=== PATIENT | female | born 1955 | race Caucasian/White ===

== ENCOUNTER 2021-08-17 12:23 | Observation (INO) ==
--- NOTE | 2021-08-17 13:00 | XRay Report ---
XR chest 1V portable CLINICAL HISTORY: Atypical chest pain TECHNIQUE: Single frontal radiograph of the chest was obtained. Comparison: None available at the time of this dictation. FINDINGS: No lines and tubes are seen. The cardiomediastinal silhouette is normal. Focal atelectasis is seen at the left lung base. No evidence of pleural effusion or pneumothorax. IMPRESSION: No acute chest disease. ACT 112: Negative or not required by law. Electronically signed by: Murali Sandoval M.D. 08/17/2021 12:59 PM
[2021-08-17 13:05] LABS: Basophils # (auto) 0.02 K/uL (0-0.2); Basophils % (auto) 0.3 %; Eosinophils # (auto) 0.11 K/uL (0-0.5); Eosinophils % (auto) 1.6 %; Hemoglobin 14.3 g/dL (12.0-16.0); Immature Granulocytes # (auto) 0.01 K/uL (0.00-0.02); Immature Granulocytes % (auto) 0.1 %; Lymphocytes # (auto) 2.11 K/uL (1.2-3.4); Lymphocytes % (auto) 30.4 %; Mean Corpuscular Hemoglobin 28.7 pg (25-34); Mean Corpuscular Hgb Conc 32.5 g/dL (32-36); Mean Corpuscular Volume 88.4 fL (80-100); Mean Platelet Volume 10.1 fL (7.4-10.4); Monocytes # (auto) 0.42 K/uL (0.11-0.59); Monocytes % (auto) 6.1 %; Neutrophils # (auto) 4.26 K/uL (1.4-6.5); Neutrophils % (auto) 61.5 %; Platelet Count 280 K/uL (130-400); RDW Coefficient of Variation 13.7 % (11.5-14.5); RDW Standard Deviation 44.4 fL (36.4-46.3); Red Blood Count 4.98 M/uL (4.2-5.4); White Blood Count 6.93 K/uL (4.8-10.8)
[2021-08-17 13:29] LABS: Alanine Aminotransferase 23 U/L (12-78); Albumin Level 3.9 gm/dl (3.4-5.0); BUN Creatinine Ratio 19.3 (10-20); Blood Urea Nitrogen 18 mg/dl (7-18); Calcium 9.3 mg/dl (8.5-10.1); Carbon Dioxide 25 mmol/L (21-32); Chloride 105 mmol/L (98-107); Creatinine Clr Calc Pharmacy 55.6 ml/min; Est GFR (African American) 76.3 ml/min; Est GFR (Non-African American) 65.8 ml/min; Glucose 89 mg/dl (70-99); Lipase 117 U/L (73-393); Potassium 3.6 mmol/L (3.5-5.1); Sodium 137 mmol/L (136-145)
[2021-08-17 13:35] LABS: Albumin Globulin Ratio 1.1 (0.9-2); Alkaline Phosphatase 42 U/L (45-117); Aspartate Aminotransferase 16 U/L (15-37); Bilirubin,Total 0.5 mg/dl (0.2-1); Globulin 3.7 gm/dl (2.5-4.0); Total Protein 7.6 gm/dl (6.4-8.2); Troponin I < 0.015 ng/ml (0-0.045)
[2021-08-17] MEDS ORDERED: diphenhydrAMINE Capsule 25 MG CAP PO PRN (15:25)
[2021-08-17] MEDS ORDERED: NITROGLYCERIN SL 0.4 MG/TAB TAB SL PRN (15:29)
--- NOTE | 2021-08-17 15:33 | History & Physical Report ---
Date of Service August 17, 2021 Assessment & Plan (1) Chest pain: Plan: will admit under obs Mianly atypical features will check cardiac markers check echo may consder stress test in AM. will order. (2) Lab test negative for COVID-19 virus: Plan: COVID 19 negative (3) Hypertension: Plan: will resume home meds (4) Dyslipidemia: Plan: continue home meds (5) GERD (gastroesophageal reflux disease): Plan: resume PPI History of Present Illness Chief Complaint: chest pain Primary Care Provider: Gurpreet Meza 66 yo female who reports coming in to the hospitalt after having chest pain that began at 11:15. Patient reports that while at work she suddenly developed midsternum sharp pain that radiated to her neck and right ear. She denies being stressed or anxious at the time. She reports she had a similar episode over 10 years ago in which they determined after a negative stress test that this was due to GERD. Patient reports she has not had an episode until today. She reports the pain was accompanied by nausea and pain improved with nitro. She has had the Covid vaccine x2 no history of blood clots or vomiting blood thinners no GI symptoms. No trauma or injury. Allergies Allergy/AdvReac Type Severity Reaction Status Date / Time ampicillin Allergy Hives Unverified 08/17/21 15:32 promethazine [From Phenergan] Allergy Hives Unverified 08/17/21 15:32 Home Medications Medication Instructions Recorded Confirmed Type Potassium 99mg 99 mg PO DAILY 08/17/21 History activated charcoal 260 mg capsule 0 mg PO PC PRN 08/17/21 08/17/21 History budesonide 3 mg 3 mg PO DAILY 08/17/21 08/17/21 History capsule,delayed,extended release calcium carbonate 600 mg (1,500 1 tab PO DAILY 08/17/21 08/17/21 History mg)-vitamin D3 200 unit tablet diphenhydramine HCl 25 mg capsule 25 mg PO DAILY PRN 08/17/21 08/17/21 History (Benadryl) loratadine 10 mg tablet 10 mg PO DAILY PRN 08/17/21 08/17/21 History melatonin 10 mg tablet 10 mg PO HS PRN 08/17/21 08/17/21 History nitrofurantoin macrocrystal 50 mg 50 mg PO DAILY PRN 08/17/21 08/17/21 History capsule (Macrodantin) pantoprazole 40 mg tablet,delayed 40 mg PO DAILY 08/17/21 08/17/21 History release quinapril 10 1 tab PO DAILY 08/17/21 08/17/21 History mg-hydrochlorothiazide 12.5 mg tablet rosuvastatin 5 mg tablet 5 mg PO DAILY 08/17/21 08/17/21 History vit C 250 mg-vit E 90 mg-zinc 40 1 tab PO DAILY 08/17/21 08/17/21 History mg-copper 1 [id number] capsule (PreserVision AREDS-2) vitamin B comp and C no.3 15 mg-10 1 cap PO DAILY 08/17/21 08/17/21 History mg-50 mg-5 mg-300 mg capsule (B Complex Plus Vitamin C) Past Med/Surg History Medical History GERD (gastroesophageal reflux disease) Social History Smoking Status: Former smoker Second Hand Exposure: No; Do You Dip or Chew Tobacco: No; Hx Alcohol Use: No Hx Substance Use: No Preferred Language: Nepalese Play Writer Required: No Beliefs That Will Affect Care: None Current Living Situation: Spouse Other Information That Helps Us Care for You: No Feels Safe at Home: Yes Safety Concerns: Feels Safe At This Time Assistive Devices: Glasses Review of Systems Constitutional: no sweats and no malaise Eyes: no diplopia Ear, Nose, Mouth, Throat: no ear trauma and no hyperacusis Respiratory: no change in sputum Cardiovascular: no chest pain with activity Gastrointestinal: no bloating Genitourinary: no urinary frequency Musculoskeletal: no radicular pain Integumentary: no rash Neurologic: no falls Psychiatric: no hopelessness Endocrine: no polydipsia Hematologic / Lymphatic: no coagulopathy Allergy / Immunological: no lip swelling Physical Exam Constitutional: WD/WN, vitals as above Eyes: PERRL, conjunctivae normal, anicteric sclerae ENMT: external ear and nose normal, oropharynx normal Neck: trachea midline, no thyromegaly Respiratory: normal respiratory effort, lungs clear to auscultation Cardiovascular: RRR, no murmur, no edema Gastrointestinal (Abdomen): normal bowel sounds, soft, nontender, no hepatosplenomegaly Musculoskeletal: no cyanosis or clubbing, extremities motor strength 5/5 Skin: no rashes, warm and dry Neurologic: PERRL, EOMI, accommodation nl, no face palsy, no dysarthria Psychiatric: A+Ox3, euthymic affect Lymphatic: no cervical or axillary lymphadenopathy Results & Data Results & Data ([facility]) Vital Signs (Past 12 Hours) Vital Signs Temp Pulse Pulse Resp BP BP Pulse Ox 08/17/21 15:02 97 08/17/21 14:02 71 19 133/87 96 08/17/21 13:30 68 15 132/86 98 08/17/21 13:00 74 17 173/97 H 99 08/17/21 12:48 97 08/17/21 12:34 36.9 C 72 18 148/93 H 98 08/17/21 12:30 72 12 148/93 H 98 08/17/21 12:25 75 15 159/105 H 97 PG Care Time/CCT Total # of Minutes Spent Total Time Spent with Patient: Total time spent is greater than 50% in coordination of care (as documented) at patient's floor/unit and/or counseling patient: Coding Level of Care Code INT OBSERVATION CARE 70M LVL 3 Diagnoses Chest pain R07.2 Chest pain type: precordial pain Lab test negative for COVID-19 virus Z20.822 Hypertension I10 Hypertension type: unspecified Dyslipidemia E78.5 GERD (gastroesophageal reflux disease) K21.9 (1) Chest pain Chest pain type: precordial pain Qualified Code(s): R07.2 - Precordial pain (2) Hypertension Hypertension type: unspecified Qualified Code(s): I10 - Essential (primary) hypertension
--- NOTE | 2021-08-17 16:27 | Emergency Department Note ---
History of Present Illness General Chief complaint: Chest Pain Time Seen by Provider: 08/17/21 12:52 Source: patient Mode of arrival: EMS Limitations: no limitations History of Present Illness This patient is a 66-year-old female who comes in after having episode of sharp chest pain that started at 1015. 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 it went up the right side of her neck and her jaw hurt as well no radiation of the back or the arm. She did have some nausea and slight diaphoresis but no shortness of breath the pain was 6 out of 10 initially. they did call the ambulance because her blood pressure was also high at 176/102. Prior to the ambulance coming her pain did come down to 3 out of 10 and they gave her 324 mg aspirin as well as 1 nitroglycerin and that made her pain go away. The pain was not pleuritic she had no lower extremity pain or swelling. She has had the Covid vaccine x2 no history of blood clots or vomiting blood thinners no GI symptoms. No trauma or injury. Home Medications Medication Instructions Recorded Confirmed Type Potassium 99mg 99 mg PO DAILY 08/17/21 History activated charcoal 260 mg capsule 0 mg PO PC PRN 08/17/21 08/17/21 History budesonide 3 mg 3 mg PO DAILY 08/17/21 08/17/21 History capsule,delayed,extended release calcium carbonate 600 mg (1,500 1 tab PO DAILY 08/17/21 08/17/21 History mg)-vitamin D3 200 unit tablet diphenhydramine HCl 25 mg capsule 25 mg PO DAILY PRN 08/17/21 08/17/21 History (Benadryl) loratadine 10 mg tablet 10 mg PO DAILY PRN 08/17/21 08/17/21 History melatonin 10 mg tablet 10 mg PO HS PRN 08/17/21 08/17/21 History nitrofurantoin macrocrystal 50 mg 50 mg PO DAILY PRN 08/17/21 08/17/21 History capsule (Macrodantin) pantoprazole 40 mg tablet,delayed 40 mg PO DAILY 08/17/21 08/17/21 History release quinapril 10 1 tab PO DAILY 08/17/21 08/17/21 History mg-hydrochlorothiazide 12.5 mg tablet rosuvastatin 5 mg tablet 5 mg PO DAILY 08/17/21 08/17/21 History vit C 250 mg-vit E 90 mg-zinc 40 1 tab PO DAILY 08/17/21 08/17/21 History mg-copper 1 [id number] capsule (PreserVision AREDS-2) vitamin B comp and C no.3 15 mg-10 1 cap PO DAILY 08/17/21 08/17/21 History mg-50 mg-5 mg-300 mg capsule (B Complex Plus Vitamin C) Allergies Allergy/AdvReac Type Severity Reaction Status Date / Time ampicillin Allergy Hives Unverified 08/17/21 15:32 promethazine [From Phenergan] Allergy Hives Unverified 08/17/21 15:32 Past Med/Surg History Medical History GERD (gastroesophageal reflux disease) Social History Feels Safe at Home: Yes Immunizations: Past medical historydenies diabetes she does have hypertension as well as hypercholesterolemia. She does have fibromyalgia and GI issues Family history grandfather of an [place] Social history she quit smoking 10 years ago and had about a 15-year smoking history or so. Does not use alcohol or drugs Review of Systems A total of 10 systems reviewed and were otherwise negative Physical Exam Vital Signs Vital Signs - 24 hr 08/17/21 12:25 08/17/21 12:30 08/17/21 12:34 Temperature 36.9 C Temperature Source Oral Pulse Rate 75 72 72 Pulse Rate [Apical] Pulse Rate from SpO2 Sensor 76 72 Pulse Rhythm [Apical] Pulse Strength [Apical] Respiratory Rate 15 12 18 Respiratory Effort / Characteristics Respiratory Depth Respiratory Pattern Blood Pressure 159/105 H 148/93 H 148/93 H Blood Pressure [Right Arm] Blood Pressure Mean 123 111 111 Blood Pressure Mean [Right Arm] Blood Pressure Position [Right Arm] Pulse Oximetry 97 98 98 Oxygen Delivery Method Room Air Sepsis Recent Fever Within 48 Hours No Sepsis New/Unexplained Change in Mental Status No Sepsis Action Taken by Nursing No Action Required 08/17/21 12:48 08/17/21 13:00 08/17/21 13:30 Temperature Temperature Source Pulse Rate 74 68 Pulse Rate [Apical] Pulse Rate from SpO2 Sensor 74 70 Pulse Rhythm [Apical] Pulse Strength [Apical] Respiratory Rate 17 15 Respiratory Effort / Characteristics Respiratory Depth Respiratory Pattern Blood Pressure 173/97 H 132/86 Blood Pressure [Right Arm] Blood Pressure Mean 122 101 Blood Pressure Mean [Right Arm] Blood Pressure Position [Right Arm] Pulse Oximetry 97 99 98 Oxygen Delivery Method Room Air Sepsis Recent Fever Within 48 Hours Sepsis New/Unexplained Change in Mental Status Sepsis Action Taken by Nursing 08/17/21 14:02 08/17/21 15:02 Temperature Temperature Source Pulse Rate Pulse Rate [Apical] 71 Pulse Rate from SpO2 Sensor Pulse Rhythm [Apical] Regular Pulse Strength [Apical] Normal Respiratory Rate 19 Respiratory Effort / Characteristics Non-Labored Spontaneous Respiratory Depth Normal Respiratory Pattern Regular Blood Pressure Blood Pressure [Right Arm] 133/87 Blood Pressure Mean Blood Pressure Mean [Right Arm] 102 Blood Pressure Position [Right Arm] Lying Pulse Oximetry 96 97 Oxygen Delivery Method Room Air Room Air Sepsis Recent Fever Within 48 Hours Sepsis New/Unexplained Change in Mental Status Sepsis Action Taken by Nursing General: Well developed well nourished middle-age female who appears in no acute distress, breathing comfortably on room air. Normal speech HEENT: Normal cephalic atraumatic. Pupils are equal round and reactive to light. Extraocular movements are intact. Oropharynx is pink with moist mucous membranes. No swelling of the mouth lips or tongue. Neck: Supple with a midline trachea. No meningeal signs or stiffness, no JVD or bruits. No Stridor. Chest: Clear to auscultation bilaterally. No wheezes or rhonchi. No increased work of breathing. Not reproducibly tender Heart: Regular rate and rhythm without murmurs or gallops. Abdomen: Soft nontender, nondistended without rebound guarding or rigidity. Extremities: No cyanosis clubbing or edema. No calf tenderness or assymetry Spine/Back. Non tender to palpation. No CVA tenderness Skin: Good turgor without rashes. Neurologic exam: Cranial nerves two through 12 are intact. Motor and sensation are intact and symmetrical throughout. Medical Decision Making Differential Diagnosis Acute coronary syndrome, arrhythmia, pulmonary disease, electrolyte or metabolic abnormality, GERD Medical Records Attestation: I reviewed the patient's medical records. Home Medications Current Medication List: was personally reviewed by me Laboratory Data Attestation: I reviewed the patient's lab results. Result diagrams: 08/17/21 12:30 08/17/21 12:30 Lab Results 08/17/21 08/17/21 08/17/21 Range/Units 12:30 12:30 14:10 WBC 6.93 (4.8-10.8) K/uL RBC 4.98 (4.2-5.4) M/uL Hgb 14.3 (12.0-16.0) g/dL Hct 44.0 (37-47) % MCV 88.4 (80-100) fL MCH 28.7 (25-34) pg MCHC 32.5 (32-36) g/dL RDW Std Deviation 44.4 (36.4-46.3) fL RDW Coeff of Yenni 13.7 (11.5-14.5) % Plt Count 280 (130-400) K/uL MPV 10.1 (7.4-10.4) fL Immature Gran % (Auto) 0.1 % Neut % (Auto) 61.5 % Lymph % (Auto) 30.4 % Heard % (Auto) 6.1 % Eos % (Auto) 1.6 % Baso % (Auto) 0.3 % Neut # (Auto) 4.26 (1.4-6.5) K/uL Lymph # (Auto) 2.11 (1.2-3.4) K/uL Heard # (Auto) 0.42 (0.11-0.59) K/uL Eos # (Auto) 0.11 (0-0.5) K/uL Baso # (Auto) 0.02 (0-0.2) K/uL Immature Gran # (Auto) 0.01 (0.00-0.02) K/uL Sodium 137 (136-145) mmol/L Potassium 3.6 (3.5-5.1) mmol/L Chloride 105 (98-107) mmol/L Carbon Dioxide 25 (21-32) mmol/L Anion Gap 7.0 (3-11) BUN 18 (7-18) mg/dl Creatinine 0.92 (0.6-1.2) mg/dl Est Cr Clr Drug Dosing 55.6 ml/min Est GFR ( Amer) 76.3 ml/min Est GFR (Non-Af Amer) 65.8 ml/min BUN/Creatinine Ratio 19.3 (10-20) Glucose 89 (70-99) mg/dl Calcium 9.3 (8.5-10.1) mg/dl Total Bilirubin 0.5 (0.2-1) mg/dl AST 16 (15-37) U/L ALT 23 (12-78) U/L Alkaline Phosphatase 42 L (45-117) U/L Troponin I < 0.015 (0-0.045) ng/ml Total Protein 7.6 (6.4-8.2) gm/dl Albumin 3.9 (3.4-5.0) gm/dl Globulin 3.7 (2.5-4.0) gm/dl Albumin/Globulin Ratio 1.1 (0.9-2) Lipase 117 (73-393) U/L Specimen Hemolysis COVID-19 Eval Order Covid19 at [facility] SARS-CoV-2 (PCR) (Negative) 08/17/21 Range/Units 14:10 WBC (4.8-10.8) K/uL RBC (4.2-5.4) M/uL Hgb (12.0-16.0) g/dL Hct (37-47) % MCV (80-100) fL MCH (25-34) pg MCHC (32-36) g/dL RDW Std Deviation (36.4-46.3) fL RDW Coeff of Yenni (11.5-14.5) % Plt Count (130-400) K/uL MPV (7.4-10.4) fL Immature Gran % (Auto) % Neut % (Auto) % Lymph % (Auto) % Heard % (Auto) % Eos % (Auto) % Baso % (Auto) % Neut # (Auto) (1.4-6.5) K/uL Lymph # (Auto) (1.2-3.4) K/uL Heard # (Auto) (0.11-0.59) K/uL Eos # (Auto) (0-0.5) K/uL Baso # (Auto) (0-0.2) K/uL Immature Gran # (Auto) (0.00-0.02) K/uL Sodium (136-145) mmol/L Potassium (3.5-5.1) mmol/L Chloride (98-107) mmol/L Carbon Dioxide (21-32) mmol/L Anion Gap (3-11) BUN (7-18) mg/dl Creatinine (0.6-1.2) mg/dl Est Cr Clr Drug Dosing ml/min Est GFR ( Amer) ml/min Est GFR (Non-Af Amer) ml/min BUN/Creatinine Ratio (10-20) Glucose (70-99) mg/dl Calcium (8.5-10.1) mg/dl Total Bilirubin (0.2-1) mg/dl AST (15-37) U/L ALT (12-78) U/L Alkaline Phosphatase (45-117) U/L Troponin I (0-0.045) ng/ml Total Protein (6.4-8.2) gm/dl Albumin (3.4-5.0) gm/dl Globulin (2.5-4.0) gm/dl Albumin/Globulin Ratio (0.9-2) Lipase (73-393) U/L Specimen Hemolysis COVID-19 Eval Order SARS-CoV-2 (PCR) NEGATIVE (Negative) Imaging Data Attestation: I personally reviewed and interpreted this imaging study as follows: My Impression: Chest x-rayno acute infiltrate, failure, pneumothorax seen. Radiologist's Impression: Chest X-Ray 08/17/21 12:47 XR chest 1V portable CLINICAL HISTORY: Atypical chest pain TECHNIQUE: Single frontal radiograph of the chest was obtained. Comparison: None available at the time of this dictation. FINDINGS: No lines and tubes are seen. The cardiomediastinal silhouette is normal. Focal atelectasis is seen at the left lung base. No evidence of pleural effusion or pneumothorax. IMPRESSION: No acute chest disease. ACT 112: Negative or not required by law. Electronically signed by: Murali Sandoval M.D. 08/17/2021 12:59 PM ECG Data Attestation: I personally reviewed and interpreted this ECG as follows: Indication: + chest pain Rate (beats per minute): 68 Rhythm: + sinus with SA and + sinus rhythm ECG Intervals/blocks: + Normal QRS, + Normal QT and + Normal [place] ECG [place]: + Normal ECG ST segments: + Normal ST segments ECG Findings: + Other (Nonspecific T wave abnormalities particularly laterally ); no PACs or no PVCs Comparison ECG Date: no prior available Additional Comments: EKG #2: Normal sinus rhythm rate of 74. Nonspecific T wave abnormalities/ST abnormalities, no significant change compared to EKG #1 MDM Narrative This patient comes in as described above she had an episode of chest pain today. It is resolved now. She does have several risk factors with hypertension, hypercholesteremia and family history. EKG has some nonspecific findings. Her troponin is not elevated. she did receive aspirin prior to arrival she tells me she did have an episode like this 10 years ago and everything checked out with a stress test at the time but she has not had any since then. Chest x-ray does not show congestive heart failure, pneumonia, or pneumothorax. she has nothing to suggest acute electrolyte or metabolic abnormalities. Given her risk factors and her symptoms,I do think she needs to be admitted/observed and have consulted the [facility] hospitalist to see her in the ER for these measures. Continuous cardiac monitoring: Orders placed in EMR for continuous cardiac monitoring. Upon my interpretation the patient was noted to be in normal sinus rhythm rate of 70. Impression & Plan Chest pain, Dyslipidemia, Hypertension, Nonspecific ST-T wave electrocardiographic changes, Lab test negative for COVID-19 virus Discharge Plan Visit Data Chief Complaint: Chest Pain ED Provider: Bassem Saenz Discharge Problem: Chest pain, Dyslipidemia, Hypertension, Nonspecific ST-T wave electrocard iographic changes, Lab test negative for COVID-19 virus Forms Stand Alone Forms: My [facility] Prescriptions Prescriptions: No Action activated charcoal [Charcoal] 260 mg Capsule 0 mg PO PC PRN (Reason: Pain) RF: 0 nitrofurantoin macrocrystal [Macrodantin] 50 mg Capsule 50 mg PO DAILY PRN (Reason: Pain) RF: 0 quinapril-hydrochlorothiazide 10-12.5 mg tablet 1 tab PO DAILY RF: 0 calcium carbonate-vitamin D3 [Calcium + D] 600 mg(1,500mg) -200 unit Tablet 1 tab PO DAILY RF: 0 pantoprazole 40 mg Tablet,Delayed Release (Dr/Ec) 40 mg PO DAILY RF: 0 diphenhydramine HCl [Benadryl] 25 mg Capsule 25 mg PO DAILY PRN (Reason: Allergy Symptoms) RF: 0 budesonide 3 mg capsule,delayed,extend.release 3 mg PO DAILY RF: 0 loratadine 10 mg Tablet 10 mg PO DAILY PRN (Reason: Pain) RF: 0 rosuvastatin 5 mg tablet 5 mg PO DAILY RF: 0 B Complex Plus Vitamin C 22-78-74-5-300 mg Capsule 1 cap PO DAILY RF: 0 melatonin 10 mg Tablet 10 mg PO HS PRN (Reason: Sleep) RF: 0 PreserVision AREDS-2 250-90-40-1 mg Capsule 1 tab PO DAILY RF: 0 Potassium 99mg 99 mg 99 mg PO DAILY RF: 0 Referrals Referrals: Gurpreet Meza D.O. [Primary Care Provider] - Discharge Problem: Chest pain Qualifiers: Chest pain type: precordial pain Qualified Code(s): R07.2 - Precordial pain Hypertension Qualifiers: Hypertension type: unspecified Qualified Code(s): I10 - Essential (primary) hypertension
--- NOTE | 2021-08-17 16:52 | XCELERA ---
[id number]
[2021-08-18 06:21] LABS: Basophils # (auto) 0.02 K/uL (0-0.2); Basophils % (auto) 0.4 %; Eosinophils # (auto) 0.13 K/uL (0-0.5); Eosinophils % (auto) 2.5 %; Hematocrit (blood only) 44.3 % (37-47); Hemoglobin 14.5 g/dL (12.0-16.0); Immature Granulocytes # (auto) 0.01 K/uL (0.00-0.02); Immature Granulocytes % (auto) 0.2 %; Lymphocytes # (auto) 1.78 K/uL (1.2-3.4); Mean Corpuscular Hemoglobin 28.8 pg (25-34); Mean Corpuscular Hgb Conc 32.7 g/dL (32-36); Mean Corpuscular Volume 87.9 fL (80-100); Mean Platelet Volume 9.9 fL (7.4-10.4); Monocytes # (auto) 0.48 K/uL (0.11-0.59); Monocytes % (auto) 9.2 %; Neutrophils # (auto) 2.81 K/uL (1.4-6.5); Neutrophils % (auto) 53.7 %; Platelet Count 272 K/uL (130-400); RDW Coefficient of Variation 13.6 % (11.5-14.5); Red Blood Count 5.04 M/uL (4.2-5.4); White Blood Count 5.23 K/uL (4.8-10.8)
[2021-08-18 06:49] LABS: BUN Creatinine Ratio 24.7 (10-20); Calcium 9.2 mg/dl (8.5-10.1); Creatinine Clr Calc Pharmacy 63.9 ml/min; Est GFR (African American) 90.3 ml/min; Est GFR (Non-African American) 77.9 ml/min; Potassium 3.6 mmol/L (3.5-5.1)
[2021-08-18] MEDS ORDERED: hydroCHLOROthiazide 25 MG TAB PO SCH (09:00)
[2021-08-18] MEDS ORDERED: ENALAPRIL MALEATE 10 MG TAB PO SCH ×2 (09:00)
[2021-08-18] MEDS ORDERED: PANTOprazole 40 MG TAB PO SCH (09:00)
[2021-08-18] MEDS ORDERED: ASPIRIN 81 MG ECTAB PO SCH (09:00)
[2021-08-18] MEDS ORDERED: ROSUVASTATIN CALCIUM 5 MG TAB PO SCH (09:00)
[2021-08-18] MEDS ORDERED: BUDESONIDE EC 3 MG CAP PO SCH (09:00)
[2021-08-18] MEDS ORDERED: ALUMINUM/MAGNESIUM SUSP 18 ML, LIDOCAINE VISCOUS 2% SOLN 6 ML, BARCODE IDENTIFIER 1 EA PO ONE (11:28)
--- NOTE | 2021-08-18 12:31 | Electrocardiogram Report ---
Test Reason : Blood Pressure : / mmHG Vent. Rate : 068 BPM Atrial Rate : 068 BPM P-R Int : 130 ms QRS Dur : 094 ms QT Int : 414 ms P-R-T Axes : 053 019 021 degrees QTc Int : 440 ms Normal sinus rhythm Possible Inferior infarct , age undetermined Cannot rule out Anterior infarct , age undetermined Abnormal ECG No previous ECGs available Confirmed by Ludwin Carlton ([id number]) on 08/18/2021 12:30:50 PM Referred By: Confirmed By:Ludwin Carlton
--- NOTE | 2021-08-18 14:06 | Discharge Summary ---
Date of Service August 18, 2021 Admission HPI Per Admitting Provider 66 yo female who reports coming in to the hospitalt after having chest pain that began at 11:15. Patient reports that while at work she suddenly developed midsternum sharp pain that radiated to her neck and right ear. She denies being stressed or anxious at the time. She reports she had a similar episode over 10 years ago in which they determined after a negative stress test that this was due to GERD. Patient reports she has not had an episode until today. She reports the pain was accompanied by nausea and pain improved with nitro. She has had the Covid vaccine x2 no history of blood clots or vomiting blood t hinners no GI symptoms. No trauma or injury. Principal Diagnosis Atypical chest pain-noncardiac Discharge Exam Constitutional WD/WN, vitals as above Eyes PERRL, conjunctivae normal, anicteric sclerae ENMT external ear and nose normal, oropharynx normal Neck trachea midline, no thyromegaly Respiratory normal respiratory effort, lungs clear to auscultation Cardiovascular RRR, no murmur, no edema Chest (Breasts) Chest: normal inspection of chest Gastrointestinal (Abdomen) normal bowel sounds, soft, nontender, no hepatosplenomegaly Musculoskeletal Extremities: extremities normal to inspection; no cyanosis and no clubbing Skin no rashes, warm and dry Neurologic moves all extremities and awake; no focal motor deficits Psychiatric A+Ox3, euthymic affect Lymphatic no lymphedema Discharge Data Allergies Allergy/AdvReac Type Severity Reaction Status Date / Time ampicillin Allergy Hives Unverified 08/17/21 15:32 promethazine [From Phenergan] Allergy Hives Unverified 08/17/21 15:32 Consultations 08/17/21 14:33 ED Decision to Admit Stat Ordered Studies Stress echocardiogram-negative Hospital Course (1) Chest pain: Very atypical chest pain, mostly resolved with some residual and likely due to GI cause such as esophageal spasm or acid reflux. Serial troponin negative x3, chest x-ray negative, stress echocardiogram negative Patient doing well and stable for discharge to home no events on telemetry ECG with minor abnormality but patient reports that she has been told this in the past-no old EKG to compare to from 10 years ago but suspect similar Suggest taking Protonix 40 mg p.o. twice daily x2 weeks to see if this makes it resolve Give GI cocktail as well (2) Lab test negative for COVID-19 virus: COVID 19 negative (3) Hypertension: Continue home quinapril HCT (4) Dyslipidemia: continue home rosuvastatin (5) GERD (gastroesophageal reflux disease): Increase PPI to twice daily upon discharge for 2 weeks Total Time Total Time Spent Total Time Spent (In Minutes): 35 minutes Discharge Plan Discharge Items Patient Disposition: Home - Self-Care Reason For Visit: CHEST PAIN Discharge Diagnosis: Non cardiac chest pain Condition on Discharge: Good Activity: Resume your previous activity Non-emergency contact: Primary Care Provider and [employer] Call non-emergency contact if: you have any medication questions, your symptoms worsen and your pain is not controlled Follow-up/Referrals: Gurpreet Meza D.O. [Primary Care Provider] - (PLEASE CONTACT YOUR PRIMARY CARE PROVIDER TO SCHEDULE A FOLLOW-UP DISCHARGE APPOINTMENT WITHIN 1-2 WEEKS.) Diet: Heart Healthy Diet Comment: and GERD diet Addtl Attending Provider Instructions: Please increase your pantoprazole to 40mg twice a day x 2 weeks, then return to once daily dosing. Pending Studies at Discharge: No Stand-Alone Forms: My [facility] Medications and DC Order Prescriptions: Continued activated charcoal 260 mg Capsule 0 mg PO PC PRN (Reason: Pain) RF: 0 nitrofurantoin macrocrystal [Macrodantin] 50 mg Capsule 50 mg PO DAILY PRN (Reason: Pain) RF: 0 quinapril-hydrochlorothiazide 10-12.5 mg tablet 1 tab PO DAILY RF: 0 calcium carbonate-vitamin D3 600 mg(1,500mg) -200 unit Tablet 1 tab PO DAILY RF: 0 diphenhydramine HCl [Benadryl] 25 mg Capsule 25 mg PO DAILY PRN (Reason: Allergy Symptoms) RF: 0 budesonide 3 mg capsule,delayed,extend.release 3 mg PO DAILY RF: 0 loratadine 10 mg Tablet 10 mg PO DAILY PRN (Reason: Pain) RF: 0 rosuvastatin 5 mg tablet 5 mg PO DAILY RF: 0 B Complex Plus Vitamin C 29-21-55-5-300 mg Capsule 1 cap PO DAILY RF: 0 melatonin 10 mg Tablet 10 mg PO HS PRN (Reason: Sleep) RF: 0 PreserVision AREDS-2 250-90-40-1 mg Capsule 1 tab PO DAILY RF: 0 Potassium 99mg 99 mg 99 mg PO DAILY RF: 0 Changed pantoprazole 40 mg Tablet,Delayed Release (Dr/Ec) 40 mg PO BID 14 Days Qty: 28 RF: 0 Discharge Orders: Discharge Order (Routine); Ordered 08/18/21 Ordered By: Yin Hawley Admission Data Admit Date/Time: 08/17/21 15:28 Attending Provider: Yin Hawley Admit Provider: Wang Sage Primary Care Provider: Gurpreet Meza Other Providers: Wang Sage Other Interventions: Discharge Summary Assessment (RN) Last Done: 08/18/21 13:51 Coding Level of Care Code 42253 OBS Care - Discharge Diagnoses Chest pain R07.2 Chest pain type: precordial pain Lab test negative for COVID-19 virus Z20.822 Hypertension I10 Hypertension type: unspecified Dyslipidemia E78.5 GERD (gastroesophageal reflux disease) K21.9
--- NOTE | 2021-08-18 15:13 | Electrocardiogram Report ---
Test Reason : Blood Pressure : / mmHG Vent. Rate : 074 BPM Atrial Rate : 074 BPM P-R Int : 130 ms QRS Dur : 100 ms QT Int : 422 ms P-R-T Axes : 063 033 012 degrees QTc Int : 468 ms Normal sinus rhythm Possible Left atrial enlargement Nonspecific ST abnormality Abnormal ECG When compared with ECG of 17-AUG-2021 12:27, (unconfirmed) No significant change was found Confirmed by Ludwin Carlton ([id number]) on 08/18/2021 3:12:57 PM Referred By: REFERRED SELF Confirmed By:Ludwin Carlton
--- NOTE | 2021-08-20 08:34 | XCELERA ---
[id number]
== END 2021-08-18 14:24 | disposition home or self-care (01) ==
LOC: EDINP 12:23 → ED 12:23 → SUATTDRO 15:28 → 2N 19:01